=== PATIENT | male | born 1995 | race American Indian/Alaskan Native ===

== ENCOUNTER 2018-12-21 13:45 | Emergency (ER) | payer MEDICAID ==
--- NOTE | 2018-12-21 16:25 | Emergency Department Report ---
HPI - General Chief Complaint: Extremity Injury, Lower Time Seen by Provider: 12/21/18 16:24 ED Past Medical Hx - Past Medical History Previous Medical History?: No - Surgical History Past Surgical History?: No - Family History Family history: no significant - Social History Smoking Status: Current Every Day Smoker Substance Use Type: None - Medications Home Medications: Home Medications Medication Instructions Recorded Confirmed Last Taken Type Silver Sulfadiazine [Ssd] 1 applic TP BID #1 cream..g. 12/21/18 Unknown Rx cephALEXin [Keflex] 500 mg PO Q12HR #20 cap 12/21/18 Unknown Rx ED Review of Systems ROS: Stated complaint: RT FOOT SWELLING/PAINS/SCARES Other details as noted in HPI Comment: All other systems reviewed and negative Physical Exam - Physical Exam Vital Signs: Vital Signs 12/21/18 14:03 Temperature 97.4 F L Pulse Rate 98 H Respiratory 18 Rate Blood Pressure 128/83 [Left] O2 Sat by Pulse 97 Oximetry Physical Exam: OBESE A/O S1S2 LUNGS DECREASED B BASES BLE EDEMA R MORE THAN LEFT HEALING R FOOT ULCER- HAS BEEN TREATED PER PT NO WITH LLE MANDUJANO WOUND CELLULITIC APPEARING TISSUES DP PLUS 1 BILATERAL ABD OBESE; NO ASCITES ED Course Vital Signs 12/21/18 14:03 Temperature 97.4 F L Pulse Rate 98 H Respiratory 18 Rate Blood Pressure 128/83 [Left] O2 Sat by Pulse 97 Oximetry ED Medical Decision Making - Lab Data Result diagrams: 12/21/18 17:26 12/21/18 17:26 - EKG Data EKG shows normal: sinus rhythm Rate: tachycardia - EKG Data When compared to previous EKG there are: no significant change Interpretation: no acute changes - Radiology Data Radiology results: report reviewed, image reviewed - Medical Decision Making Labs 12/21/18 12/21/18 12/21/18 17:26 17:26 17:26 WBC 12.0 H RBC 4.51 Hgb 13.9 Hct 40.8 MCV 90 MCH 31 MCHC 34 RDW 13.8 Plt Count 311 D-Dimer 203.30 Sodium 143 Potassium 4.1 Chloride 103.3 Carbon Dioxide 30 Anion Gap 14 BUN 16 Creatinine 0.8 Estimated GFR > 60 BUN/Creatinine Ratio 20 Glucose 93 Calcium 9.1 Total Bilirubin 0.20 AST 12 ALT 11 Alkaline Phosphatase 63 Total Protein 6.7 Albumin 4.1 Albumin/Globulin Ratio 1.6 Vital Signs 12/21/18 14:03 Temperature 97.4 F L Pulse Rate 98 H Respiratory 18 Rate Blood Pressure 128/83 [Left] O2 Sat by Pulse 97 Oximetry LABS NOTED US NEG FOR DVT WOUND CARE PROVIDED AND TAUGHT DC HOME WITH DC INSTRUCTIONS AND WOUND CARE - Differential Diagnosis RO DVT/CELLULITIS Critical care attestation.: If time is entered above; I have spent that time in minutes in the direct care of this critically ill patient, excluding procedure time. ED Disposition Clinical Impression: Chronic wound of extremity, Cellulitis, Edema Disposition: DC-01 TO HOME OR SELFCARE Is pt being admited?: No Does the pt Need Aspirin: No Condition: Stable Instructions: Acute Wound Care (ED) Referrals: ABNER GLOVER MD [Staff Physician] - 3-5 Days MAHAMED SAENZ MD [Staff Physician] - 3-5 Days Time of Disposition: 18:02
[2018-12-21] MEDS ORDERED: ROCEPHIN/NS 1 GM/50 ML 1 GM/50 ML BAG IV ONE (16:35)
--- NOTE | 2018-12-21 17:35 | Vascular Lab Report ---
DUPLEX DOPPLER LOWER EXTREMITY VEINS, RIGHT INDICATION: LEG PAIN. TECHNIQUE: Duplex doppler imaging was performed through the veins of the right lower extremity using venous comp ression and other maneuvers. COMPARISON: None available. FINDINGS: Common Femoral vein: Negative. Superficial Femoral vein: Negative. Popliteal vein: Negative. Calf veins: Negative. Additional findings: None. IMPRESSION: 1. No sonographic evidence for DVT in the right lower extremity. Signer Name: Jose Sy MD Signed: 12/21/2018 5:30 PM Workstation Name: [id number]
[2018-12-21 17:37] LABS: Hematocrit 40.8 % (35.5-45.6); Hemoglobin 13.9 gm/dl (11.8-15.2); Mean Corpuscular HGB Conc 34 % (32-34); Mean Corpuscular Volume 90 fl (84-94); Platelet Count 311 K/mm3 (140-440); Red Blood Count 4.51 M/mm3 (3.65-5.03); Red Cell Distribution Width 13.8 % (13.2-15.2)
[2018-12-21 17:56] LABS: Alanine Aminotransferase 11 units/L (7-56); Albumin 4.1 g/dL (3.9-5); BUN/Creatinine Ratio 20; Blood Urea Nitrogen 16 mg/dL (9-20); Calcium 9.1 mg/dL (8.4-10.2); Hemolysis Index 9
[2018-12-21] MEDS ORDERED: LASIX PO ONE (18:03)
[2018-12-21 18:48] VITALS: BP 145/84
[2018-12-21] MEDS ORDERED: THERMAZENE 50 GRAM TP ONE (18:56)
== END 2018-12-21 18:49 | disposition home or self-care (01) ==
LOC: ED 13:45
DX: S81.801A Unspecified open wound, right lower leg, initial encounter (principal); L03.115 Cellulitis of right lower limb; R60.0 Localized edema; F17.200 Nicotine dependence, unspecified, uncomplicated; X58.XXXA Exposure to other specified factors, initial encounter; Y93.89 Activity, other specified; Y92.89 Other specified places as the place of occurrence of the external cause; Y99.8 Other external cause status
CPT/HCPCS: 36415; 80053; 85027; 85379; 93005; 93010; 93971; 96365; 99284; J0696